=== PATIENT | female | born 1985 | race Caucasian/White ===

== ENCOUNTER 2019-12-03 05:10 | Day surgery (SDC) | payer OTHER ==
[~2019-12-03 05:10] MED LIST: COLACE100 MG PO; Colace 100MG PO; OBSTETRIX EC1 TAB.EC PO
[2019-12-03] MEDS ORDERED: Tylenol #3 PO (08:34)
[2019-12-03] MEDS ORDERED: MORGIDOX100 MG PO (08:34)
== END 2019-12-03 14:55 | disposition home or self-care (01) ==
LOC: CIR.AMB 05:10 → ADM 10:00 → CIR.AMB 10:00
DX: N84.0 Polyp of corpus uteri (principal); D25.0 Submucous leiomyoma of uterus

== ENCOUNTER 2021-05-04 07:44 | Inpatient (IN) | payer OTHER ==
[~2021-05-04] VITALS: Ht 160 cm; Wt 98.4 kg
[~2021-05-04 07:44] MED LIST changes: +MORGIDOX100 MG PO; +Tylenol #3 PO
[2021-05-05] MEDS ORDERED: VALACYCLOVIR500 MG (08:44)
[2021-05-05] MEDS ORDERED: TYLENOL325 MG PO (08:44)
== END 2021-05-07 19:24 | disposition home or self-care (01) | DRG 807 ==
LOC: LDR 07:44 → OB/GYN 07:44
PROVIDERS: ADMIT Obstetrics & Gynecology; ATTEND Obstetrics & Gynecology
PROC: 10E0XZZ Delivery of Products of Conception, External Approach (ICD-10-PCS; principal; 2021-05-04)
PROC: 0KQM0ZZ Repair Perineum Muscle, Open Approach (ICD-10-PCS; 2021-05-04)
PROC: 10907ZC Drainage of Amniotic Fluid, Therapeutic from Products of Conception, Via Natural or Artificial Opening (ICD-10-PCS; 2021-05-04)
PROC: 4A1HXFZ Monitoring of Products of Conception, Cardiac Rhythm, External Approach (ICD-10-PCS; 2021-05-04)
DX: O99.824 Streptococcus B carrier state complicating childbirth (principal); O70.1 Second degree perineal laceration during delivery; Z37.0 Single live birth; Z3A.39 39 weeks gestation of pregnancy; Z20.822 Contact with and (suspected) exposure to COVID-19